=== PATIENT | male | born 1990 | race Caucasian/White ===

== ENCOUNTER 2024-07-29 13:04 | Emergency (ER) | payer MEDICAID, SELFPAY ==
--- NOTE | 2024-07-29 13:30 | PC.NURSE ---
pt belongings removed, pt changed into green paper scrubs.
[2024-07-29 13:32] VITALS: BP 134/89; PULSE 94; RESP 18; TEMP 37; O2SAT 95; BMI 29.7
--- NOTE | 2024-07-29 14:03 | ED_ITS ---
HPI - Alcohol 2 General: Chief Complaint: Alcohol Stated Complaint: MHE Time Seen by Provider: 07/29/24 13:23 Source: patient Mode of arrival: ambulatory Limitations: no limitations History of Present Illness: This patient was referred to the emergency department by jesenia otero. The patient is currently therefore alcohol rehabilitation. They were concerned because he had a history of withdrawal in the past with seizure. He states his last drink was approximately 24 hours ago and he is feeling very shaky and anxious. He states he has not had any history of codependent substances. He does not have any ongoing depression sadness or suicidal ideation or thoughts of harming others. He currently lives with his father he does not drink alcohol. He states he has been drinking off all alcohol off and on since he was a teenager and has had episodes of sobriety and then falling back off the wagon. He states he generally drinks approximately 1/5 of spirits daily MD complaint: alcohol withdrawal and alcohol dependence Associated symptoms: Reports nausea; Deny abdominal pain, hematemesis, syncope or vomiting Related Data Home Medications ?Medication ?Instructions ?Recorded ?Confirmed acamprosate 333 mg tablet,delayed 2 mg PO TID 07/29/24 07/29/24 release chlordiazepoxide HCl 5 mg capsule 5 mg PO Q8H PRN [place] Withdrawal 07/29/24 07/29/24 gabapentin 600 mg tablet 600 mg PO TID 07/29/2407/29 paroxetine HCl 20 mg tablet 20 mg PO DAILY 07/29/24 Previous Rx's ?Medication ?Instructions ?Recorded chlordiazepoxide HCl 25 mg capsule 50 mg (2 x 25 mg) P O Q6H 07/29/24 withdrawal 5 days #40 caps Allergies Allergy/AdvReac Type Severity Reaction Status Date / Time No Known Allergies Allergy Verified 07/29/24 13:41 Review of Systems 2 Const: Denies: fever(s) or chills Eyes: Denies: change in vision ENMT: Denies: odynophagia or nasal discharge Card: Denies: chest pain, palpitations, syncope or pre-syncope Resp: Denies: dyspnea, productive cough or non-productive cough GI: Reports: nausea; Denies: abdominal pain, vomiting, hematemesis or diarrhea : Denies: flank pain, difficulty urinating, dysuria or urinary frequency Musc: Denies: neck pain, back pain, extremity pain or extremity swelling Skin/Breast: Denies: rash Neuro: Denies: headache(s), numbness in extremities or weakness in extremities Psych: Reports: anxiety; Denies: visual hallucinations or auditory hallucinations Physical Exam 2 Narrative: EXAM NARRATIVE: The patient makes good eye contact his speech is somewhat rapid and pressured and he appears to be anxious but cooperative Const: COMMON NORMALS: average body habitus, patient oriented x3 and alert GENERAL APPEARANCE: cooperative and anxious HENMT: COMMON NORMALS: normocephalic, Normal nasal mucous membranes and turbinates present, moist oral mucous membranes and oropharynx normal HEAD & SCALP: normocephalic NOSE: Normal nasal mucous membranes and turbinates present Eye: COMMON NORMALS: Equal, round and reactive pupils present, EOMs intact bilaterally and conjunctivae normal CONJUNCTIVA: Yes conjunctivae normal P UPIL: Yes Equal, round and reactive pupils present Neck/C-Spine: COMMON NORMALS: full ROM and Thyroid normal THYROID: Thyroid normal Chest: COMMONS NORMALS: normal inspection of the chest Resp: COMMON NORMALS: normal respiratory effort, No retractions, No use of accessory muscles and clear to auscultation bilaterally EFFORT & INSPECTION: Yes able to speak in complete sentences AUSCULTATION: clear to auscultation bilaterally Cardio: COMMON NORMALS: regular rate, regular rhythm and Peripheral pulses 2+ throughout RATE: regular rate RHYTHM: regular rhythm PERIPHERAL PULSES: Peripheral pulses 2+ throughout GI: COMMON NORMALS: Normal to inspection, nondistended, normoactive bowel sounds present, Soft to palpation and non-tender PALPATION: Yes Soft to palpation : COMMON NORMALS: Yes no CVA tenderness BLADDER/KIDNEY EXAM: Yes no CVA tenderness Back/Pelvis: COMMON NORMALS: no CVA tenderness, thoracic and lumbar spine normal to inspection and no thoracic nor lumbar tenderness Extremity: COMMON NORMALS: normal to inspection, full ROM, capillary refill normal and no calf tenderness Neuro: COMMON NORMALS: patient oriented x3, moves all extremities, no focal motor deficits and no sensory deficits noted SENSORIUM/ORIENTATION: Yes alert Psych: COMMON NORMALS: mental status grossly normal and cooperative A TTITUDE: Yes calm ACTIVITY/MOTOR BEHAVIOR: Yes appropriate eye contact and Yes restless SPEECH: Yes rapid MOOD & AFFECT: Yes anxious THOUGHT CONTENT: Yes Normal thought content present INSIGHT: Fair insight present (Psych) JUDGEMENT: Fair judgement present (Psych) Skin: COMMON NORMALS: no rashes or lesions noted, no wounds and turgor normal GENERAL SKIN EXAM: no rashes or lesions noted and turgor normal Course 2 Reevaluation(s): Reevaluation #1: Patient calm and vital signs are reassuring. Discussed with the staff at [facility] and they are fully capable of giving this gentleman Librium as part of a withdrawal protocol. Will give him an extra loading dose prior to discharge and a prescription for the next 5 days. Time: 17:28 Vital Signs: Vital signs: Vital Signs Temperature 98.6 F 07/29/24 13:32 Pulse Rate 94 07/29/24 13:32 Respiratory Rate 18 07/29/24 13:32 Blood Pressure 134/89 07/29/24 13:32 Pulse Oximetry 95 07/29/24 13:32 Oxygen Delivery Me thod Room Air 07/29/24 13:32 MDM - Alcohol Medical Decision Making This patient was referred to the emergency department because of having withdrawal symptoms and entering into [facility] rehabilitation facility. The patient is a regular daily drinker approximately 1/5 of spirits on a daily basis and his last drink was 24 hours ago. His clinical exam revealed him to be slightly tachycardic and slightly anxious. Otherwise no focal findings on his clinical examination. He has chemistries as well as a CBC were reassuring and his alcohol level was less than 10. The patient was observed in the emergency department and given 2 doses of benzodiazepine and also a starting loading dose of chlordiazepoxide prior to discharge. The staff at his rehabilitation facility was consulted and they responded that administration of Librium was within their usual protocol. He was prescribed Librium to aid for his withdrawal symptoms over the next 5 days. Lab Data I reviewed the patient's lab results. 07/29/24 14:56 07/29/24 14:56 Laboratory Results WBC 9.20 10^3/uL (3.29-11.43) 07/29/24 14:56 RBC 4.85 10^6/uL (3.85-5.65) 07/29/24 14:56 Hgb 13.70 g/dL (11.27-16.99) 07/29/24 14:56 Hct 42.0 % (37-53) 07/29/24 14:56 MCV 86.6 fl (82-101) 07/29/24 14:56 MCH 28.2 pg (27-33) 07/29/24 14:56 MCHC 32.6 g/dL (30-55) 07/29/24 14:56 RDW 14.2 % (12.1-15.1) 07/29/24 14:56 Plt Count 342 10^3/cmm (157-399) 07/29/24 14:56 MPV 8.9 fL (7.4-10.4) 07/29/24 14:56 Neut % (Auto) 73.1 % 07/29/24 14:56 Lymph % (Auto) 17.5 % 07/29/24 14:56 [place] % (Auto) 7.7 % 07/29/24 14:56 Eos % (Auto) 0.7 % 07/29/24 14:56 Baso % (Auto) 0.7 % 07/29/24 14:56 Neut # (Auto) 6.73 10^3/uL (1.8-7.7) 07/29/24 14:56 Lymph # (Auto) 1.6 10^3/uL (0.8-4.8) 07/29/24 14:56 [place] # (Auto) 0.7 10^3/uL (0.2-0.9) 07/29/24 14:56 Eos # (Auto) 0.1 10^3/uL (0.0-0.8) 07/29/24 14:56 Baso # (Auto) 0.1 10^3/uL (0.0-0.1) 07/29/24 14:56 Nucleated RBC % (auto) 0 % 07/29/24 14:56 Nucleated RBCs # 0.0 /100WBC 07/29/24 14:56 Sodium 136 mmol/L (136-145) 07/29/24 14:56 Potassium 4.6 mmol/L (3.5-5.1) 07/29/24 14:56 Chloride 97 mmol/L (98-107) L 07/29/24 14:56 Carbon Dioxide 27 mmol/L (22-29) 07/29/24 14:56 Anion Gap 16.6 (5-19) 07/29/24 14:56 BUN 20 mg/dL (6-20) 07/29/24 14:56 Creatinine 1.0 mg/dL (0.7-1.2) 07/29/24 14:56 GFR Calculation 86.1 mL/min (90-130) L 07/29/24 14:56 Glucose 102 mg/dL (65-115) 07/29/24 14:56 Calculated Osmolality 285 mOsm/kg (285-295) 07/29/24 14:56 Calcium 9.6 mg/dL (8.5-10.5) 07/29/24 14:56 Magnesium 2.0 mg/dL (1.7-2.3) 07/29/24 14:56 Total Bilirubin 0.5 mg/dL (0.15-1.2) 07/29/24 14:56 AST 45 U/L (0-40) H 07/29/24 14:56 ALT 53 U/L (0-41) H 07/29/24 14:56 Alkaline Phosphatase 139 U/L (40-130) H 07/29/24 14:56 Total Protein 8.3 g/dL (6.6-8.7) 07/29/24 14:56 Albumin 4.4 g/dL (3.5-5.2) 07/29/24 14:56 Globulin 3.9 g/dL (1.3-4.6) 07/29/24 14:56 Ethyl Alcohol < 10 mg/dL (0-10) 07/29/24 14:56 No radiology studies performed this visit Discharge Plan Discharge Patient Disposition: Home Clinical Impression: Alcohol use disorder Condition: Stable Prescriptions: New chlordiazepoxide HCl 25 mg capsule 50 mg PO Q6H 5 Days Qty: 40 0RF No Action gabapentin 600 mg tablet 600 mg PO TID chlordiazepoxide HCl 5 mg capsule 5 mg PO Q8H PRN (Reason: Alcohol Withdrawal) paroxetine HCl 20 mg tablet 20 mg PO DAILY acamprosate 333 mg tablet,delayed release (DR/EC) 2 mg PO TID Discharge Orders: Discharge ED (Routine); Ordered 07/29/24 Ordered By: Sunday Gilmore Discharge Diet: Usual diet Discharge Activity: Increase activity as tolerated Patient Instructions: Opioid Safety, Pain Management Activity Restrictions/Additional Instructions: We have provided you a prescription for Librium that you should take 50 mg every 6 hours for the next 5 days to help reduce any risk of withdrawal symptoms etc. If it anytime you feel like your symptoms are worsening or other symptoms are developing you are welcome to return to the emergency department anytime. Print Language: Italian Coding Level of Care Code ED Erp Programmer for Tonie Hartley
--- NOTE | 2024-07-29 14:07 | PC.PHAR ---
No current meds found-listed last 6 months.
[2024-07-29] MEDS: chlordiazePOXIDE 25 mg Capsule PO (14:30)
[2024-07-29] MEDS: lactated ringers 1,000 ML 999 ML IV (15:03)
[2024-07-29] MEDS: LORazepam 2 mg/mL INJ 1 mL 1 MG IVP (15:04)
[2024-07-29 15:10] LABS: Basophils # 0.1 10^3/uL (0.0-0.1); Basophils % 0.7 %; Eosinophils # 0.1 10^3/uL (0.0-0.8); Eosinophils % 0.7 %; Lymphocytes # 1.6 10^3/uL (0.8-4.8); Lymphocytes % 17.5 %; Mean Corpuscular HGB Conc 32.6 g/dL (30-55); Mean Corpuscular Hemoglobin 28.2 pg (27-33); Mean Corpuscular Volume 86.6 fl (82-101); Mean Platelet Volume 8.9 fL (7.4-10.4); Monocytes # 0.7 10^3/uL (0.2-0.9); Monocytes % 7.7 %; Neutrophils # 6.73 10^3/uL (1.8-7.7); Neutrophils % 73.1 %; Nucleated Red Blood Cells % 0 %; Platelet Count 342 10^3/cmm (157-399); Red Blood Count 4.85 10^6/uL (3.85-5.65); Red Cell Distribution Width 14.2 % (12.1-15.1)
[2024-07-29 15:26] LABS: Alanine Aminotransferase 53 U/L (0-41); Albumin Level 4.4 g/dL (3.5-5.2); Alcohol Level < 10 mg/dL (0-10); Alkaline Phosphatase 139 U/L (40-130); Anion Gap 16.6 (5-19); Aspartate Amino Transferase 45 U/L (0-40); Blood Urea Nitrogen 20 mg/dL (6-20); Calcium 9.6 mg/dL (8.5-10.5); Carbon Dioxide 27 mmol/L (22-29); Chloride 97 mmol/L (98-107); Creatinine Clr Calc Pharmacy 110.1702; Globulin 3.9 g/dL (1.3-4.6); Glomerular Filtration Rate 86.1 mL/min (90-130); Glucose 102 mg/dL (65-115); Osmolality Calculated 285 mOsm/kg (285-295); Potassium 4.6 mmol/L (3.5-5.1); Sodium 136 mmol/L (136-145); Total Bilirubin 0.5 mg/dL (0.15-1.2); Total Protein 8.3 g/dL (6.6-8.7)
[2024-07-29] MEDS: LORazepam 2 mg Tablet PO (17:04)
[2024-07-29] MEDS: chlordiazePOXIDE 25 mg Capsule 50 MG PO (17:41)
== END 2024-07-29 17:53 | disposition home or self-care (01) ==
PROVIDERS: Emergency Provider Emergency Medicine
DX: F10.20 Alcohol dependence, uncomplicated (principal)
CPT/HCPCS: 36415; 80053; 80307; 83735; 85025; 96374; 99284; J2060; J7120